=== PATIENT | female | born 1950 | race Caucasian/White ===

== ENCOUNTER → 2017-10-15 | Day surgery (SDC) | payer MEDICARE ==
[~2017-10-15] VITALS: Ht 162.6 cm; Wt 81.0 kg
[~2017-10-15] MED LIST: *MEPERIDINE 25 MG INJ VIAL PERIprocedural Use ONLY ONE; *morphine SULFATE 8 MG/ML PERIprocedure ONLY ONE; CALC1TAB12 PO; CHLORHEXIDINE GLUCONATE 2 % 1 PACK (2 CLOTHS) TOPICAL PRN; DEXAMETHASONE SOD PHOS 4 MG/ML VIAL IV ONE; DO NOT ADM ANY ANTICOAGULANT DRUGS PRN; INSULIN HUMAN REGULAR 1,000 UNITS/10 ML VIAL SQ PRN; LACTATED RINGER'S 1000 ML IV PRN; LEXA20TA PO; LIDOCAINE HCL 1% PF 5 ML SYRINGE OTHER ONE; METOPROLOL TARTRATE 25 MG TAB PO PRN; MULT1TAB46 PO; ONDANSETRON HCL 4 MG/2 ML VIAL IV PUSH ONE; POVIDONE IODINE 5% (ANTISEPSIS KIT) 4 APPLICATIONS EACH NARE PRN; PROPOFOL 200 MG/20 ML AMP IV ONE; SODIUM CHLORID 0.9% 500 ML IV PRN; TRAZ50TA12 PO; ceFAZolin 1,000 MG/NS 100 ML IV SCH; oxyCODONE/ACETAMINOPHEN 5 MG/325 MG TAB PO PRN
--- NOTE | 2017-10-15 07:54 | PD.OP ---
Operative Report Date of Surgery: Oct 15, 2017 Preoperative Diagnosis: (1) Benign endometrial hyperplasia (2) Postmenopausal bleeding (3) Abnormal findings on diagnostic imaging of other specified body structures Postoperative Diagnosis: (1) Benign endometrial hyperplasia (2) Postmenopausal bleeding (3) Abnormal findings on diagnostic imaging of other specified body structures Procedure: 1. hysteroscopy 2. D&C Anesthesia: SID Surgeon: Ladan Graf Community Chest Officer(s): OR staff Operation and Findings: IVF: 700 ml LR + IV antibiotics given prior to surgery UO: 100 ml EBL: <25 ml Findings: very vascular thickened endometrium Specimens: endometrial curettings Complications: none Condition: stable Disposition: PACU Descriptions of the procedure: I discussed the risks, benefits and alternatives of the procedure with the patient. Informed consent was obtained after questions were answered. She was taken to the operating room with her IV running. She was placed in the supine position and was given general anesthesia without difficulties or complications. She was then placed in the dorsal lithotomy position and was prepped and draped in the usual sterile fashion. A bivalve speculum was placed inside the patient's vagina. The anterior aspect of the cervix was grasped with a single tooth tenaculum for manipulation. The cervix was carefully dilated. A hysteroscope was introduced inside the patient' s uterus. The uterine cavity was noted to have some abnormal-looking vascular areas. Next, a gentle D&C was carefully done. The endometrial curettings were sent to pathology. All the instruments were removed from the uterine cavity. The cervix was noted to be hemostatic after applying pressure. All the instruments were removed from the patient's vagina. The patient tolerated the procedure well. She was successfully awaken from general anesthesia and was transferred to PACU in stable condition. Note: I discussed the surgical findings and surgical procedures with the patient 's friend. Her questions were answered. She verbalized understanding and agreement to the procedures done. Ladan Graf MD Oct 15, 2017 07:54
[2017-10-15 09:51] VITALS: BP 141/78; PULSE 72; RESP 18; TEMP 98.2; O2SAT 98
--- NOTE | 2017-10-16 09:35 | EKG ---
Date Performed: 10/15/2017 Time Performed: 06:18:05 PTAGE: 67 years EKG: Sinus rhythm VOLTAGE CRITERIA FOR LVH ABNORMAL ECG NO PREVIOUS TRACING DOCTOR: Pablo Ovalle Interpretating Date/Time 10/16/2017 09:33:37
== END | disposition home or self-care (01) ==
LOC: HSDC 05:48
PROVIDERS: ATTEND Obstetrics & Gynecology
DX: N85.01 Benign endometrial hyperplasia (principal); N95.0 Postmenopausal bleeding; R94.31 Abnormal electrocardiogram [ECG] [EKG]
CPT/HCPCS: 00952; 58558; 88305; 93005; J0690; J1100; J2175; J2270; J2405; J3010; J7120

== ENCOUNTER 2018-01-20 06:01 | Inpatient (IN) | payer MEDICARE ==
[~2018-01-20] VITALS: Ht 162.6 cm; Wt 81.8 kg
[~2018-01-20 06:01] MED LIST changes: -*MEPERIDINE 25 MG INJ VIAL PERIprocedural Use ONLY ONE; -*morphine SULFATE 8 MG/ML PERIprocedure ONLY ONE; -CHLORHEXIDINE GLUCONATE 2 % 1 PACK (2 CLOTHS) TOPICAL PRN; -DEXAMETHASONE SOD PHOS 4 MG/ML VIAL IV ONE; -DO NOT ADM ANY ANTICOAGULANT DRUGS PRN; -INSULIN HUMAN REGULAR 1,000 UNITS/10 ML VIAL SQ PRN; -LACTATED RINGER'S 1000 ML IV PRN; -LIDOCAINE HCL 1% PF 5 ML SYRINGE OTHER ONE; -METOPROLOL TARTRATE 25 MG TAB PO PRN; -ONDANSETRON HCL 4 MG/2 ML VIAL IV PUSH ONE; -POVIDONE IODINE 5% (ANTISEPSIS KIT) 4 APPLICATIONS EACH NARE PRN; -PROPOFOL 200 MG/20 ML AMP IV ONE; -SODIUM CHLORID 0.9% 500 ML IV PRN; -ceFAZolin 1,000 MG/NS 100 ML IV SCH; -oxyCODONE/ACETAMINOPHEN 5 MG/325 MG TAB PO PRN
[2018-01-20] MEDS ORDERED: METOPROLOL TARTRATE 25 MG TAB PO PRN (06:30)
[2018-01-20] MEDS ORDERED: SODIUM CHLORID 0.9% 500 ML IV PRN (06:30)
[2018-01-20] MEDS ORDERED: LACTATED RINGER'S 1000 ML IV PRN (06:30)
[2018-01-20] MEDS ORDERED: ceFAZolin 2 GM PREMIX 50 ML IV SCH (06:30)
[2018-01-20] MEDS ORDERED: POVIDONE IODINE 5% (ANTISEPSIS KIT) 4 APPLICATIONS EACH NARE PRN (06:30)
[2018-01-20] MEDS ORDERED: CHLORHEXIDINE GLUCONATE 2 % 1 PACK (2 CLOTHS) TOPICAL PRN (06:30)
[2018-01-20] MEDS ORDERED: CEFAZOLIN INJ 2,000 MG in SODIUM CHLORIDE 0.9% INJ 100 ML IV SCH (06:45)
[2018-01-20] MEDS ORDERED: ESTROGENS CONJUGATED VAG CREA 15 APPL/30 GM TUBE ONE (07:10)
[2018-01-20] MEDS ORDERED: SODIUM CHLORIDE 0.9% 20 ML VIAL ONE (07:10)
[2018-01-20] MEDS ORDERED: VASOPRESSIN 20 UNITS/ML VIAL ONE (07:10)
[2018-01-20] MEDS ORDERED: BUPIVACAINE/EPINEPHRINE 0.25% PF 10 ML VIAL ONE (07:10)
--- NOTE | 2018-01-20 07:59 | PD.OP ---
Operative Report Date of Surgery: Jan 20, 2018 Preoperative Diagnosis: (1) Benign endometrial hyperplasia (2) Postmenopausal bleeding (3) Abnormal findings on diagnostic imaging of other specified body structures Postoperative Diagnosis: (1) Benign endometrial hyperplasia (2) Postmenopausal bleeding (3) Abnormal findings on diagnostic imaging of other specified body structures (4) Abdominal adhesions (5) Pelvic adhesions Procedure: 1. extensive, extreme, lengthy lysis of adhesions 2. abdominal hysterectomy 3. bilateral salpingectomy (ovaries were not found in patient's pelvis) Anesthesia: SID Surgeon: Ladan Graf Paralegal Internship(s): OR Staff Operation and Findings: IVF: 1400 ml LR + IV antibiotic given prior to surgery + fluorescent dye given during surgery EBL: 200 ml UO: 200 ml Surgical findings: 1. extreme, extensive thick, fibrous adhesions involving bowel and anterior abdominal wall -- 35 minutes were needed to restore anatomy in order to proceed with surgery 2. extreme, extensive thick fibrous adhesions involving pelvic organs and bowel -- 25 to 30 minutes were needed to free the pelvic organs in order to complete the surgery 3. normal small uterus 4. normal fallopian tubes 5. ovaries not visualized nor palpated despite extensive lysis of adhesions -- US showed a 1.5 cm right ovary Specimens: 1. uterus 2. cervix 3. bilateral fallopian tubes Complications: none Condition: stable Disposition: PACU Description of the procedure: The risks, benefits and alternatives of the procedure were discussed with the patient. Informed consent was obtained after questions were answered. The patient was then transferred to the operating room with her IV running. Antibiotics were given prior to surgery. She was placed in the supine position and was given general anesthesia without difficulties or complications. The patient was placed in the dorsal lithotomy position and was prepped and draped in the usual sterile fashion . Attention was then turned to the patient's pelvis. A bivalve speculum was placed inside the patient's vagina. The anterior aspect of the cervix was grasped with a single tooth tenaculum for manipulation. The cervix was carefully dilated. A uterine manipulator was placed inside the uterus. The rest of the instruments were removed from the patient's vagina. The surgeon changed gloves and attention was then turned to the patient's abdomen. Next, a vertical umbilical incision was made with the scalpel. A 5mm trocar was placed inside the abdomen while observing with the camera. A pneumoperitoneum was created with CO2 gas. Extensive, extreme abdominal adhesions were noted as described above. The decision was then made to proceed with open procedure due to lack of adequate visualization. All the instruments were removed from the patient's abdomen. The uterine manipulator was also removed and the patient's position was changed to a supine position. A Pfannenstiel skin incision was then made with the scalpel. The incision was extended to the fascia with the Bovie. The fascia was incised in the midline with a scalpel. The fascial incision was then extended sharply with Lepe scissors. Next, the rectus muscles were in the midline with a hemostat and the peritoneum was identified and carefully entered. Extensive, severe, thick and fibrous adhesions were encountered everywhere in the abdomen involving bowel and anterior abdominal wall. At least 35 minutes were spent carefully lysing adhesions in order to return anatomy to normal and to be able to proceed with surgery. A Dequan retractor was placed inside the patient's abdomen. Care was taken to place moist laps under the blades. The bowel was carefully packed away with moist laparotomy sponges. A bladder blade was also introduced inside the pelvic cavity. At this time, additional and extensive lysis of thick, fibrous adhesions was needed in order to proceed with the surgery. The bowel was re-packed in order to improve visualization of the pelvic organs. Fluorescent dye was given to the patient in order to identify any injury to ureters / bladder. The left round ligament was identified, doubly clamped, transected and suture ligated with 0-Vicryl. Adequate hemostasis was noted. The fallopian tube was the only part of the left adnexa found. The left IP was not identified; the left ovary was not found. In the right adnexa, the fallopian tube was also the only part of the adnexa identified. The right ovary was not found in the right adnexa. The right IP was identified, doubly clamped, transected and suture ligated with 0-Vicryl. The right fallopian tube was removed. Good hemostasis was noted. The tissues along the uterus were serially doubly clamped, transected and suture ligated times two with 0-Vicryl. Good hemostasis was noted. The upper part of the uterus was removed using the Bovie to aid in visualization. The lower uterine segment and cervix were serially doubly clamped, transected and suture ligated times two with 0-Vicryl. The vaginal tissues under the cervix were clamped and transected with curved Lepe scissors. The vaginal cuff was closed with running, locked sutures of 0-Vicryl. Copious irrigation was done several times. The ureters were not identified well due to the difficulty of the surgery and the adhesions encountered. Iridescent dye was given at the beginning of the surgery; no spillage or blockage was noted. Excellent hemostasis was noted at all the surgical sites and pedicles. Surgicel powder was placed over the vaginal cuff and pedicles. All the instruments were removed from the patient's pelvis and vagina. The instrument count was correct times three. The bowel was carefully inspected and noted to be intact. The 5 mm fascial incision from the attempted laparoscopic procedure was closed with a figure eight of 0-Vicryl. The peritoneum was closed with running stitches of 0 Vicryl. The rectus muscles were reapproximated with interrupted stitches of 0- Vicryl. The fascia was reapproximated with running stitches of looped 0-PDS. The subcutaneous tissues were copiously irrigated and reapproximated with running stitches using 2-0 Vicryl. The skin was reapproximated with running stitches of Monocryl on a curved needle. Mastisol and steri strips were placed over the incision. The umbilical incision was also closed with Monocryl and covered with band aid. The patient was successfully extubated and taken to PACU in stable condition. Since the patient had to be open, arrangements were made for inpatient admission. Note: I discussed surgical findings and surgical procedures with patient's friend. Her questions were answered. She verbalized understanding and agreement to the procedures done. Ladan Graf MD Jan 20, 2018 07:59
[2018-01-20] MEDS ORDERED: FLUORESCEIN SOD 10% SOLN 500 MG/5 ML AMP ONE (08:17)
[2018-01-20] MEDS: LACTATED RINGER'S 1000 ML INJ 1,000 ML IV SCH (10:47)
[2018-01-20] MEDS ORDERED: ZOLPIDEM TARTRATE 5 MG TAB PO PRN (11:00)
[2018-01-20] MEDS ORDERED: SODIUM CHLORIDE 0.9% FLUSH 10 ML FLUSH IV FLUSH PRN (11:00)
[2018-01-20] MEDS ORDERED: diphenhydrAMINE HCL 50 MG/ML VIAL IV PUSH PRN (11:00)
[2018-01-20] MEDS ORDERED: IBUPROFEN 600 MG TAB PO PRN (11:00)
[2018-01-20] MEDS ORDERED: ACETAMINOPHEN/HYDROcodone 325 MG/5 MG TAB PO PRN (11:00)
[2018-01-20] MEDS ORDERED: MORPHINE SULFATE 4 MG/ML INJ IV PUSH PRN (11:00)
[2018-01-20] MEDS: ACETAMINOPHEN 1000 MG/100 ML 100 ML IV SCH ×3 (11:00→23:25)
[2018-01-20] MEDS ORDERED: ONDANSETRON HCL 4 MG/2 ML VIAL IV PUSH PRN (11:00)
[2018-01-20] MEDS ORDERED: DO NOT ADM ANY ANTICOAGULANT DRUGS PRN (11:07)
[2018-01-20] MEDS ORDERED: MIDAZOLAM HCL 2 MG/2 ML VIAL ONE (11:14)
[2018-01-20] MEDS ORDERED: *morphine SULFATE 4 MG/ML PERIprocedure ONLY ONE ×2 (11:15→12:51)
[2018-01-20] MEDS ORDERED: *MEPERIDINE 25 MG INJ VIAL PERIprocedural Use ONLY ONE (11:24)
[2018-01-20] MEDS ORDERED: ONDANSETRON HCL 4 MG/2 ML VIAL IV ONE (12:00)
[2018-01-20] MEDS ORDERED: GLYCOPYRROLATE 1 MG/5 ML SYRINGE IV PUSH ONE (12:00)
[2018-01-20] MEDS ORDERED: DEXAMETHASONE SOD PHOS 4 MG/ML VIAL IV ONE (12:00)
[2018-01-20] MEDS ORDERED: NEOSTIGMINE 5 MG/5 ML SYRINGE IV PUSH ONE (12:00)
[2018-01-20] MEDS ORDERED: PROPOFOL 200 MG/20 ML AMP IV ONE (12:00)
[2018-01-20] MEDS ORDERED: ROCURONIUM INJ 50 MG/5 ML SYRINGE IV PUSH ONE (12:00)
[2018-01-20] MEDS ORDERED: LIDOCAINE HCL 1% PF 5 ML SYRINGE OTHER ONE (12:00)
[2018-01-20] MEDS ORDERED: ePHEDrine/NS 25 MG/5 ML SYRINGE IV ONE (12:00)
[2018-01-20] MEDS ORDERED: *ONDANSETRON 4 MG VIAL PERIprocedural Use ONLY ONE (13:38)
[2018-01-20 14:00] VITALS: BP 115/61; PULSE 89; RESP 16; TEMP 98.6; O2SAT 99
[2018-01-20] MEDS ORDERED: fentaNYL 25 MCG/HR PATCH T-DERMAL ONE (15:00)
[2018-01-20] MEDS ORDERED: METOCLOPRAMIDE HCL 10 MG/2 ML VIAL IM PRN (15:00)
[2018-01-20] MEDS: DOCUSATE SODIUM 100 MG CAP PO PRN (17:50)
[2018-01-20] MEDS: LORazepam 0.5 MG TAB PO PRN (17:50)
[2018-01-20] MEDS: MORPHINE SULFATE 2 MG/ML INJ IV PRN ×2 (18:31→23:25)
[2018-01-20 20:49] VITALS: BP 163/85; PULSE 75; RESP 18; TEMP 98.5
[2018-01-20] MEDS: SODIUM CHLORIDE 0.9% FLUSH 10 ML FLUSH IV FLUSH SCH (21:00)
[2018-01-21 01:06] VITALS: BP 164/89; PULSE 72; RESP 18; TEMP 98.4
[2018-01-21 05:01] VITALS: BP 144/83; PULSE 77; RESP 19; TEMP 98.2
[2018-01-21] MEDS: MORPHINE SULFATE 2 MG/ML INJ IV PRN (05:02)
[2018-01-21] MEDS: DOCUSATE SODIUM 100 MG CAP PO PRN ×2 (05:02→16:41)
[2018-01-21] MEDS: ACETAMINOPHEN 1000 MG/100 ML 100 ML IV SCH (06:39)
--- NOTE | 2018-01-21 07:32 | HHI.PR ---
Subjective Remarks Doing well, pain is well controlled, eating well. Wonders if she could be discharged home today. "I feel SO much better today" Objective Vital Signs Vital Signs Date Time Temp Pulse Resp B/P (MAP) Pulse Ox O2 Delivery O2 Flow Rate FiO2 01/21/18 05:01 98.2 77 19 144/83 (103) 01/21/18 01:06 98.4 72 18 164/89 (114) 01/20/18 20:49 98.5 75 18 163/85 (111) 01/20/18 18:45 16 01/20/18 14:00 98.6 89 16 115/61 (79) 99 01/20/18 13:40 97.5 01/20/18 13:40 97.5 56 16 135/71 (92) 100 Nasal Cannula 3 01/20/18 12:45 53 17 141/72 (95) 100 Nasal Cannula 3 01/20/18 12:15 50 15 129/69 (89) 100 Nasal Cannula 3 01/20/18 12:00 51 17 132/72 (92) 100 Nasal Cannula 3 01/20/18 11:45 50 15 137/70 (92) 100 Nasal Cannula 3 01/20/18 11:30 76 15 151/71 (97) 100 Nasal Cannula 3 01/20/18 11:15 61 15 145/67 (93) 100 Nasal Cannula 3 01/20/18 11:07 96.2 57 15 143/70 (94) 100 Nasal Cannula 3 01/20/18 11:07 96.2 I/O 01/20/18 01/20/18 01/20/18 01/21/18 01/21/18 01/21/18 07:00 15:00 23:00 07:00 15:00 23:00 Intake Total 1675 ml Output Total 1050 ml 400 ml 500 ml Balance 625 ml -400 ml -500 ml Intake IV Total 1675 ml Output Urine Total 850 ml 400 ml 500 ml Estimated Blood Loss 200 ml Objective Remarks Laboratory Tests Test 01/21/18 07:16 White Blood Count 8.6 TH/MM3 Red Blood Count 3.99 MIL/MM3 Hemoglobin 13.0 GM/DL Hematocrit 38.8 % Mean Corpuscular Volume 97.2 FL Mean Corpuscular Hemoglobin 32.7 PG Mean Corpuscular Hemoglobin Concent 33.6 % Red Cell Distribution Width 13.7 % Platelet Count 320 TH/MM3 Mean Platelet Volume 7.5 FL Neutrophils (%) (Auto) 72.9 % Lymphocytes (%) (Auto) 14.5 % Monocytes (%) (Auto) 12.2 % Eosinophils (%) (Auto) 0.2 % Basophils (%) (Auto) 0.2 % Neutrophils # (Auto) 6.3 TH/MM3 Lymphocytes # (Auto) 1.2 TH/MM3 Monocytes # (Auto) 1.0 TH/MM3 Eosinophils # (Auto) 0.0 TH/MM3 Basophils # (Auto) 0.0 TH/MM3 CBC Comment DIFF FINAL Differential Comment Blood Urea Nitrogen 8 MG/DL Creatinine 1.18 MG/DL Random Glucose 104 MG/DL Calcium Level 8.4 MG/DL Sodium Level 139 MEQ/L Potassium Level 4.0 MEQ/L Chloride Level 103 MEQ/L Carbon Dioxide Level 27.9 MEQ/L Anion Gap 8 MEQ/L Estimat Glomerular Filtration Rate 46 ML/MIN Chest is clear, regular rate and rhythm. Abdomen is soft and non-distended. Incision is clean and dry. Ext no CCE. A/P Assessment and Plan Post Op Day 1 1. stable 2. Doing well 3. will reassess in the afternoon 4. plan to send patient Home tomorrow and return to office in two weeks. Ladan Graf MD Jan 21, 2018 07:32
[2018-01-21 07:56] LABS: AUTOMATED NEUTROPHIL # 6.3 TH/MM3 (1.8-7.7); BASOPHIL % 0.2 % (0.0-2.0); EOSINOPHIL % 0.2 % (0.0-4.0); HEMATOCRIT 38.8 % (35.0-46.0); LYMPH % 14.5 % (9.0-44.0); LYMPHOCYTE # 1.2 TH/MM3 (1.0-4.8); MEAN CELL VOLUME 97.2 FL (80.0-100.0); MEAN CORPUSCULAR HEMOGLOBIN 32.7 PG (27.0-34.0); MEAN CORPUSCULAR HGB CONC 33.6 % (32.0-36.0); MEAN PLATELET VOLUME 7.5 FL (7.0-11.0); MONO % 12.2 % (0.0-8.0); NEUT % 72.9 % (16.0-70.0); PLATELET COUNT 320 TH/MM3 (150-450); RED BLOOD COUNT 3.99 MIL/MM3 (4.00-5.30); RED CELL DISTRIBUTION WIDTH 13.7 % (11.6-17.2); WHITE BLOOD COUNT 8.6 TH/MM3 (4.0-11.0)
[2018-01-21 08:19] LABS: BICARBONATE 27.9 MEQ/L (21.0-32.0); CALCIUM 8.4 MG/DL (8.5-10.1); CREATININE 1.18 MG/DL (0.50-1.00)
[2018-01-21 08:33] VITALS: BP 161/73; PULSE 63; RESP 18; TEMP 98.7; O2SAT 95
[2018-01-21] MEDS: SODIUM CHLORIDE 0.9% FLUSH 10 ML FLUSH IV FLUSH SCH (09:00)
[2018-01-21] MEDS: ACETAMINOPHEN/HYDROcodone 325 MG/10 MG TAB PO PRN ×4 (09:03→20:23)
[2018-01-21] MEDS: ENOXAPARIN SODIUM 30 MG/0.3 ML SYRINGE SQ SCH (10:07)
[2018-01-21] MEDS: LACTATED RINGER'S 1000 ML INJ 1,000 ML IV SCH ×2 (10:47→18:47)
[2018-01-21 11:57] VITALS: BP 115/64; PULSE 71; RESP 18; TEMP 98.1; O2SAT 96
[2018-01-21 16:00] VITALS: BP 131/72; PULSE 66; RESP 20; TEMP 98; O2SAT 98
--- NOTE | 2018-01-21 16:17 | HHI.DCPOC ---
Discharge Care Plan Diagnosis: (1) Benign endometrial hyperplasia (2) Postmenopausal bleeding Report Symptoms to Your Doctor -Temperature above 100.5 degrees -Redness, of incision or excessive or foul smelling drainage -Unusual pain or calf pain -Increased vaginal bleeding -Painful or difficulty urinating -Feelings of extreme sadness or anxiety after 2 weeks Goals to Promote Your Health * To prevent worsening of your condition and complications * To maintain your health at the optimal level Directions to Meet Your Goals Take your medications as prescribed Follow your dietary instruction Follow activity as directed Ensure plenty of rest for recovery Drink fluids for hydration Keep your appointments as scheduled Take your immunizations and boosters as scheduled If your symptoms worsen call your PCP, if no PCP go to Urgent Care Center or Emergency Room Smoking is Dangerous to Your Health. Avoid second hand smoke Call the 24-hour crisis hotline for domestic abuse at Ladan Graf MD Jan 21, 2018 16:17
[2018-01-21 20:00] VITALS: BP 152/78; PULSE 76; RESP 18; TEMP 97.8; O2SAT 97
[2018-01-21] MEDS: SIMETHICONE 80 MG CHEWABLE TAB CHEW PRN (21:53)
[2018-01-22] VITALS: BP 153/87; PULSE 74; RESP 18; TEMP 98; O2SAT 92
[2018-01-22 04:00] VITALS: BP 134/78; PULSE 76; RESP 18; TEMP 98.2; O2SAT 93
[2018-01-22] MEDS: ACETAMINOPHEN/HYDROcodone 325 MG/10 MG TAB PO PRN ×4 (04:17→12:07)
[2018-01-22 07:00] VITALS: BP 126/70; PULSE 76; RESP 18; TEMP 98.2; O2SAT 93
[2018-01-22] MEDS: SIMETHICONE 80 MG CHEWABLE TAB CHEW PRN (08:32)
[2018-01-22] MEDS: DOCUSATE SODIUM 100 MG CAP PO PRN (08:32)
[2018-01-22] MEDS: ENOXAPARIN SODIUM 30 MG/0.3 ML SYRINGE SQ SCH (10:10)
[2018-01-22] MEDS: LORazepam 0.5 MG TAB PO PRN (12:07)
== END 2018-01-22 17:35 | disposition home or self-care (01) | DRG 743 ==
LOC: HSDC 06:01 → HSDI 10:55 → H1EA 13:40
PROVIDERS: ADMIT Obstetrics & Gynecology; ATTEND Obstetrics & Gynecology
PROC: 0DNE0ZZ Release Large Intestine, Open Approach (ICD-10-PCS; 2018-01-20)
PROC: 0DNW0ZZ Release Peritoneum, Open Approach (ICD-10-PCS; 2018-01-20)
PROC: 0UTC0ZZ Resection of Cervix, Open Approach (ICD-10-PCS; 2018-01-20)
PROC: 0WJJ4ZZ Inspection of Pelvic Cavity, Percutaneous Endoscopic Approach (ICD-10-PCS; 2018-01-20)
PROC: 0UT20ZZ Resection of Bilateral Ovaries, Open Approach (ICD-10-PCS; 2018-01-20)
PROC: 0UT90ZZ Resection of Uterus, Open Approach (ICD-10-PCS; principal; 2018-01-20 07:50)
DX: N85.01 Benign endometrial hyperplasia (principal); F32.9 Major depressive disorder, single episode, unspecified; K66.0 Peritoneal adhesions (postprocedural) (postinfection); N95.0 Postmenopausal bleeding; M79.7 Fibromyalgia; M81.0 Age-related osteoporosis without current pathological fracture; Z53.39 Other specified procedure converted to open procedure
CPT/HCPCS: 80048; 85025; 86850; 86900; 86901; 88307; 94150; C1765; J0131; J0690; J1100; J1200; J1650; J2175; J2250; J2270; J2405; J2710; J3010; J7120